=== PATIENT | female | born 2005 | race Caucasian/White ===

== ENCOUNTER 2025-04-18 04:08 | Emergency (ER) | payer OTHER, SELFPAY ==
[2025-04-18 04:11] VITALS: BP 109/89
[2025-04-18] MEDS: ZOFRAN 4 MG IV (04:34)
[2025-04-18 04:53] LABS: HCG, Serum Qualitative Screen Negative
[2025-04-18 04:56] LABS: ALT (SGPT) < 10 U/L (0-35); AST (SGOT) 16 U/L (14-36); Albumin 4.6 g/dl (3.5-5.0); Alkaline Phosphatase 61 U/L (38-126); Blood Urea Nitrogen 7 mg/dl (7-17); Calcium 9.5 mg/dl (8.4-10.2); Carbon Dioxide 25 mmol/L (22-30); Chloride 104 mmol/L (98-107); Glucose 125 mg/dl (70-99); Potassium 3.7 mmol/L (3.5-5.1); Sodium 136 mmol/L (135-145); Total Protein 7.9 g/dl (6.3-8.2); eGFR > 60.00
--- NOTE | 2025-04-18 05:07 | ED.GENMED ---
History of Present Illness
General
Chief Complaint: Flank Pain
Source: patient
Exam Limitations: none
Time Seen by Provider: 04/18/25 04:45
Nursing documentation reviewed up to this point in time: agreed with
History of Present Illness
History of Present Illness:
Note:
CHIEF COMPLAINT(S)
Left-sided back pain.
HISTORY OF PRESENT ILLNESS
The patient is a 19-year-old female no past medical history presenting with sudden onset left-sided back pain. The pain began a few days ago, waking her at around 3 a.m., and was described as intermittent, lasting one to two hours followed by a
30-minute pain-free period. She reports that the pain, predominantly located in the back, radiates down into the lower abdomen. There are no associated urinary symptoms such as dysuria or frequent urination, and she denies any fever or symptoms
suggestive of a urinary tract infection. The patient denies any history of heavy lifting, recent strenuous exercise, or past episodes of similar pain. She has not noticed any change in appetite and is capable of consuming food and drinks without
difficulty. The pains first occurrence was sudden during a period of relaxation. She has not taken any pain medication at home and is declining pain management at this time. The pain does not exacerbate her discomfort when lying down or upon
palpation of the abdomen or back.
PAST SURGICAL HISTORY
Unspecified abdominal surgery.
SOCIAL HISTORY
No medications taken on a daily basis other than control pills
REVIEW OF SYSTEMS
- General: Fevers absent.
- Genitourinary: No burning sensation during urination and no symptoms suggestive of urinary tract infection.
- Respiratory: Noted difficulty breathing is not correlated with pain intensity.
PHYSICAL EXAM
General: Alert, no acute distress.
Skin: Warm, dry.
Head: Normocephalic, atraumatic.
Neck: Supple, trachea midline.
Eye, Ears, Nose, Mouth, and Throat: Oral mucosa moist.
Cardiovascular: Regular rate and rhythm, no murmurs normal peripheral perfusion, no edema.
Respiratory: No wheezes, rales, rhonchi respirations are non-labored.
Gastrointestinal: Abdomen nondistended, no tenderness upon palpation. No CVA tenderness
Back: Normal range of motion, normal alignment, not tender to touch.
Musculoskeletal: Normal range of motion, normal strength.
Neurological: Alert and oriented to person, place, time, and situation. No focal neurological deficit observed.
Psychiatric: Cooperative, appropriate mood, and affect.
PLAN
1. Obtain a CT scan to rule out possible kidney stones, kidney infection, or diverticulitis.
2. Obtain blood work to check for signs of infection.
3. Administer intravenous ketorolac for pain management as needed.
4. Monitor the patients condition and adjust the treatment plan as necessary.
DIFFERENTIAL DIAGNOSIS
The Differential Diagnosis includes, in no particular order and is not limited to:
1. Nephrolithiasis (Kidney stones)
2. Pyelonephritis
3. Diverticulitis
4. Muscular strain
5. Gastroenteritis
6. Gastritis
7. Urinary tract infection
8. Pelvic inflammatory disease
9. Sciatica
10. Obstructive uropathy
CHART REVIEW
No prior ER physician documentation to review
MDM/DISPOSITION
19-year-old female with no past medical history presents to the ER today with concerns of left-sided abdominal pain and flank pain. She has no associate fevers. No burning with urination. No urinary frequency. On control but takes no other
medications. Physical exam she is well-appearing no acute distress. She has no abdominal tenderness to palpation. No left-sided CVA tenderness. CT scan shows questionable 3 mm left distal ureteral st. No signs of UTI. Will trial outpatient
stone passage. Patient stable for discharge.
Review of Systems
Review of Systems
All Other Systems: ROS reviewed and negative except as documented in HPI and ROS
Phy Exam
Physical Exam
Physical Exam:
see hpi
Course
Orders/Labs/Results
Orders:
Orders
04/18/25 04:32
Ondansetron Injectable [Zofran] 4 mg .ROUTE .STK-MED ONE
04/18/25 04:33
Ondansetron Injectable [Zofran] 4 mg IV NOW STA
Test Result ONCE
04/18/25 04:35
Complete Blood Count/With Diff Urgent
Comprehensive Metabolic Panel Urgent
HCG, Serum Qualitative Screen Urgent
Manual Differential Urgent
Urinalysis Reflex To Culture Urgent
Date Specimen was Collected: 04/18/25
Time Specimen was Collected: 04:18
Urine Microscopic Reflex Cult Urgent
Urine Culture Urgent
ROLY Source: U
Specimen Description:
Date Specimen was Collected: 04/18/25
Time Specimen was Collected: 04:18
04/18/25 05:07
CT Abd/pelvis W Iv Cont Urgent
Comment:
Reason For Exam: LLQ flank pain/ab pain
04/18/25 06:42
Ketorolac [Toradol] 15 mg IV NOW STA
Abnormal Lab Results
04/18/25
04:35
WBC 11.1 H 10^3/uL
(4.8-10.8)
MPV 11.0 H fL
(7.4-10.4)
Glucose 125 H mg/dl
(70-99)
Ur Occult Blood Reflex 4+ A
(Negative)
Leukocyte Esterase Rfl 1+ A
(Negative)
Urine RBC >100 A /HPF
(0-2)
Urine Bacteria (Reflex) Many A
(Negative)
Urine Albumin (Reflex) 3+ A
(Neg - Trace)
04/18/25 04:35
04/18/25 04:35
Vital Signs
Initial and Last Documented VS:
Initial Vital Signs
Temp Pulse Resp BP Pulse Ox
98.6 F 85 20 109/89 98
04/18/25 04:11 04/18/25 04:11 04/18/25 04:11 04/18/25 04:11 04/18/25 04:11
Last Documented Vital Signs
Temp Pulse Resp BP Pulse Ox
98.6 F 85 20 109/89 98
04/18/25 04:11 04/18/25 04:11 04/18/25 04:11 04/18/25 04:11 04/18/25 05:07
*Pulse Oximetry
SaO2: 98
Oxygen Mode of Delivery: Room air
Patient hypoxic: no
*Critical Care Note
Total Time (30-74mins, 75-104mins- exclusive of procedures): Not Applicable
ED Attending Note
-
Portions of this chart may have been created with voice recognition software.� Occasional wrong word or��sound alike� substitutions may have occurred due to the inherent limitations of voice recognition software.
Discharge Plan
Departure
Patient Disposition: Home (Routine Discharge)
Date of Disposition: 04/18/25
Time of Disposition: 06:43
Patient with high blood pressure during this ER visit?: No
Condition: Good
Covid-19: Not Applicable
Discharge Problem:
Calculus, ureteral
Instructions: Kidney Stones (DC)
Prescriptions:
New
tamsulosin 0.4 mg capsule
0.4 mg PO DAILY Qty: 14 0RF
ondansetron 4 mg tablet,disintegrating
4 mg PO Q6H PRN (Reason: nausea and vomiting) Qty: 7 0RF
ibuprofen 600 mg tablet
600 mg PO Q8H PRN (Reason: Pain) Qty: 14 0RF
Referrals:
Jay Goodrich MD [Active, Urology] - Follow up in 5-7 days
NONE,* [Family Provider, Internal Medicine]
Activity Restrictions/Additional Instructions:
You came to the emergency department today with concerns of left-sided abdominal pain. You are found have a kidney stone that is likely explaining your symptoms. You can take Motrin Tylenol help with pain as well as Zofran to help with nausea.
You have also take Flomax once daily to potentially help with passage of the stone. If your symptoms are ongoing you will need to follow-up with urology. Immediately return to the emergency department for any signs of infection including fevers
chills or any worsening symptoms. Please also return if your symptoms are uncontrolled or you are not able to tolerate by mouth.
Interventions
Interventions:
*Risk Screen - Suicide Last Done: 04/18/25 04:11
*General Assessment Last Done: 04/18/25 04:14
*Neglect/Abuse Screening Last Done: 04/18/25 04:14
*ED- Fall Risk Assessment Last Done: 04/18/25 04:24
*ED COVID-19 Vaccine History Last Done: 04/18/25 04:14
*ED Influenza Vaccine History Last Done: 04/18/25 04:14
*Nursing Disposition Last Done: 04/18/25 07:06
ZA-Sotvlo-Dxvrschgog Assessment Last Done: 04/18/25 04:14
ED-Female Genitourinary Assessment Last Done: 04/18/25 04:14
Discharge Date and Time
Print Language: IRISH
[2025-04-18 05:11] LABS: Urine Character Slightly Cloudy (Clear)
[2025-04-18 05:15] LABS: Hematocrit 42.1 % (37.0-47.0); Hemoglobin 13.9 g/dL (12.0-16.0); Mean Corp Hgb Conc. 33.0 g/dL (33.0-37.0); Mean Corpuscular Volume 87.0 fL (81.0-99.0); Platelet Count 249 10^3/uL (130-400); Red Cell Dist. Width 12.4 % (11.5-14.5)
[2025-04-18 05:42] LABS: Urine Red Blood Cell >100 /HPF (0-2); Urine Squamous Cell 0-2 /LPF (Few)
[2025-04-18 06:47] LABS: Absolute Neutrophils -Man Diff 4.9 10^3/uL (1.4-6.5)
[2025-04-18] MEDS: TORADOL 15 MG IV (06:48)
[2025-04-18 07:11] LABS: Normal RBC Morphology Yes; Platelets Checked Yes; Total Cells Counted 100
== END 2025-04-18 07:10 | disposition home or self-care (01) ==
LOC: EMR 04:08
PROVIDERS: EMERGENCY PHYSICIAN Student in an Organized Health Care Education/Training Program
DX: N20.1 Calculus of ureter (principal)
CPT/HCPCS: 99284; 96374; 96375; 74177; 80053; 81003; 81015; 84703; 85025; 87086; Q9967

== ENCOUNTER 2025-04-20 15:43 | Emergency (ER) | payer OTHER, SELFPAY ==
[2025-04-20 15:49] VITALS: BP 127/83
[2025-04-20 16:15] LABS: Hematocrit 41.3 % (37.0-47.0); Hemoglobin 13.8 g/dL (12.0-16.0); Mean Corp Hgb Conc. 33.4 g/dL (33.0-37.0); Mean Corpuscular Volume 86.4 fL (81.0-99.0); Nucleated Red Blood Cells % 0 %; Platelet Count 228 10^3/uL (130-400); Red Cell Dist. Width 12.2 % (11.5-14.5)
[2025-04-20 16:34] LABS: Urine Character Slightly Cloudy (Clear)
[2025-04-20 16:41] LABS: ALT (SGPT) < 10 U/L (0-35); AST (SGOT) 18 U/L (14-36); Albumin 4.7 g/dl (3.5-5.0); Alkaline Phosphatase 66 U/L (38-126); Blood Urea Nitrogen 9 mg/dl (7-17); Calcium 9.8 mg/dl (8.4-10.2); Carbon Dioxide 23 mmol/L (22-30); Chloride 104 mmol/L (98-107); Glucose 107 mg/dl (70-99); Potassium 4.3 mmol/L (3.5-5.1); Sodium 137 mmol/L (135-145); Total Protein 7.9 g/dl (6.3-8.2); eGFR > 60.00
[2025-04-20 16:49] LABS: Urine Squamous Cell >30 /LPF (Few)
--- NOTE | 2025-04-20 20:50 | ED.GENMED ---
History of Present Illness
General
Chief Complaint: Flank Pain
Source: patient
Exam Limitations: none
Time Seen by Provider: 04/20/25 20:37
Nursing documentation reviewed up to this point in time: agreed with
History of Present Illness
History of Present Illness:
Note:
CHIEF COMPLAINT(S)
Left-sided abdominal pain.
HISTORY OF PRESENT ILLNESS
The patient is a 19-year-old female presenting with left-sided abdominal pain that began on Wednesday. It was noted to worsen by Wednesday, prompting her visit to the emergency department where a computed tomography (CT) scan revealed a kidney stone on
the left side. She reports having been discharged with tamsulosin to aid in stone passage. The patient does not have any urinary tract infection and denies experiencing fever or hematuria. She reports severe nausea, stating, 'I cant keep anything in
my body,' although she denies feeling lightheaded. A bowel movement was successfully passed this morning. Non-steroidal anti-inflammatory drugs (NSAIDs) were suggested for pain management, but it is unclear when she last took them. Current symptoms
include 'a little bit' of nausea, for which she will receive intravenous ondansetron. An x-ray is planned to assess the stones current position.
MEDICATIONS
Tamsulosin.
REVIEW OF SYSTEMS
- Gastrointestinal: Bowel movement present this morning, unable to keep food down, nausea reported.
- Genitourinary: No hematuria, no urinary tract infection.
- Neurological: No dizziness.
- Constitutional: Intermittent nausea, afebrile.
PHYSICAL EXAM
General: Alert, mild distress from discomfort.
Skin: Warm, dry.
Head: Normocephalic, atraumatic.
Neck: Supple, trachea midline.
Eye Ears, nose, mouth and throat: Oral mucosa moist.
Cardiovascular: Normal peripheral perfusion, No edema.
Respiratory: Respirations are non-labored.
Gastrointestinal: Abdomen nondistended
Back: Normal range of motion, Normal alignment.
Musculoskeletal: Normal range of motion, normal strength.
Neurological: Alert and oriented to person, place, time, and situation, No focal neurological deficit observed.
Psychiatric: Cooperative, appropriate mood & affect.
PLAN
- Administer intravenous Toradol for pain management.
- Administer intravenous ondansetron for nausea.
- Obtain an x-ray to assess current location of the kidney stone.
- Consider hospital admission if symptoms do not improve.
DIFFERENTIAL DIAGNOSIS
The Differential Diagnosis includes, in no particular order and is not limited to:
- Nephrolithiasis (Kidney Stones)
- Urinary Tract Infections
- Pyelonephritis
- Gastroenteritis
- Ovarian Cyst Rupture
- Appendicitis
- Ectopic
- Cholecystitis
- Pancreatitis
- Bowel Obstruction
Disposition:
SUMMARY OF ENCOUNTER
The patient, a 19-year-old female, was seen in the emergency department for left-sided abdominal pain diagnosed as a left ureteral calculus. The pain had initially worsened prompting a CT scan which revealed the kidney stone. In the emergency
department, her pain improved with the administration of intravenous Toradol (ketorolac), ondansetron, and intravenous fluids. There were no signs of a urinary tract infection (UTI).
DISPOSITION
Discharge.
ASSESSMENT
Left ureteral calculus with effective pain and nausea management in the emergency department.
EMERGENCY TREATMENTS ADMINISTERED
Intravenous Toradol (ketorolac) for pain management and intravenous ondansetron for nausea.
PLAN
The patient was advised to follow up with urology for further management of the kidney stone and to return to the emergency department if she experiences a fever or other concerning symptoms such as worsened pain or inability to tolerate oral intake.
PATIENT EDUCATION AND COUNSELING
The patient was informed about the diagnosis of a left ureteral calculus, the importance of following up with urology, and was advised to return for any fever or concerning symptoms that may indicate complications.
FOLLOW-UP INSTRUCTIONS
The patient was instructed to follow up with urology and return to the emergency department if experiencing fever or other concerning symptoms.
MEDICATION RECONCILIATION
Prescription medication of tamsulosin had been previously provided to aid in stone passage, and intravenous Toradol and ondansetron were administered in the emergency department.
MEDICAL DECISION MAKING
- Number and Complexity of Problems Addressed: Chronic conditions affecting care include nephrolithiasis. Differential diagnosis includes nephrolithiasis, urinary tract infections, pyelonephritis, gastroenteritis, ovarian cyst rupture, appendicitis,
ectopic , cholecystitis, pancreatitis, bowel obstruction.
- Data:
Category 1: Tests and documents reviewed included a CT scan showing a left ureteral calculus.
- Risk: Prescription medication was prescribed.
DIAGNOSIS
- Left ureteral calculus (ICD-10: N20.2).
Phy Exam
Physical Exam
Physical Exam:
.
Course
Orders/Labs/Results
Orders:
Orders
04/20/25 16:01
CMP [Comprehensive Metabolic Panel] Urgent
Complete Blood Count/With Diff Urgent
HCG, Urine Qualitative Screen Urgent
Date Specimen was Collected: 04/20/25
Time Specimen was Collected: 15:54
Comment: ADD ON
Urinalysis Reflex To Culture Urgent
Date Specimen was Collected: 04/20/25
Time Specimen was Collected: 15:54
Urine Microscopic Reflex Cult Urgent
04/20/25 20:45
Add On- LAB Urgent
Tests Added?: urine hcg
04/20/25 21:22
0.9% Sodium Chloride 1000 ml [Nss] 1,000 ml IV BOLUS
Ketorolac [Toradol] 15 mg IV NOW STA
Ondansetron Injectable [Zofran] 4 mg IV NOW STA
04/20/25 21:53
Abdomen Xray - 1 View [CR Abdomen - 1 View] Urgent
Comment:
Reason For Exam: left flank pain
04/20/25 23:27
Hydrocodone 5/APAP 325 [Melvin 5/325] 1 tablet PO NOW STA
Abnormal Lab Results
04/20/25
16:01
WBC 14.1 H 10^3/uL
(4.8-10.8)
MPV 10.9 H fL
(7.4-10.4)
Abs Immat Gran (auto) 0.1 H 10^3/uL
(0-0.05)
Absolute Neuts (auto) 11.5 H 10^3/uL
(1.4-6.5)
Neutrophils % 82.0 H %
(42.2-75.2)
Lymphocytes % 12.7 L %
(20.5-51.1)
Creatinine 1.1 H mg/dL
(0.6-1.0)
Glucose 107 H mg/dl
(70-99)
Urine Ketones 3+ A
(Negative)
Ur Occult Blood Reflex 4+ A
(Negative)
Urine RBC 7-10 A /HPF
(0-2)
Urine Bacteria (Reflex) Few A
(Negative)
Urine Albumin (Reflex) 2+ A
(Neg - Trace)
04/20/25 16:01
04/20/25 16:01
Vital Signs
Initial and Last Documented VS:
Initial Vital Signs
Temp Pulse Resp BP Pulse Ox
97.9 F 75 18 127/83 97
04/20/25 15:49 04/20/25 15:49 04/20/25 15:49 04/20/25 15:49 04/20/25 15:49
Last Documented Vital Signs
Temp Pulse Resp BP Pulse Ox
97.9 F 75 18 116/76 98
04/20/25 15:49 04/20/25 15:49 04/20/25 15:49 04/20/25 23:00 04/20/25 23:00
*Pulse Oximetry
SaO2: 97
Oxygen Mode of Delivery: Room air
Patient hypoxic: no
*Critical Care Note
Total Time (30-74mins, 75-104mins- exclusive of procedures): Not Applicable
ED Attending Note
-
Portions of this chart may have been created with voice recognition software.� Occasional wrong word or��sound alike� substitutions may have occurred due to the inherent limitations of voice recognition software.
Discharge Plan
Departure
Patient Disposition: Home (Routine Discharge)
Date of Disposition: 04/20/25
Time of Disposition: 23:28
Patient with high blood pressure during this ER visit?: Yes
Condition: Good
Discharge Problem:
Calculus of distal left ureter
Instructions: Kidney stones in adults, How to Strain Your Urine, BLOOD PRESSURE
Prescriptions:
New
hydrocodone-acetaminophen 5-325 mg tablet
1 tab PO Q6H PRN (Reason: Pain) Qty: 10 0RF
No Action
tamsulosin 0.4 mg capsule
0.4 mg PO DAILY Qty: 14 0RF
ondansetron 4 mg tablet,disintegrating
4 mg PO Q6H PRN (Reason: nausea and vomiting) Qty: 7 0RF
ibuprofen 600 mg tablet
600 mg PO Q8H PRN (Reason: Pain) Qty: 14 0RF
Referrals:
NONE,* [Family Provider, Internal Medicine]
Kaylie Demarco MD [Active, Urology] - Call in 1-3 days for appt
Interventions
Interventions:
*Risk Screen - Suicide Last Done: 04/20/25 15:44
*General Assessment Last Done: 04/20/25 21:02
*Neglect/Abuse Screening Last Done: 04/20/25 15:49
*ED- Fall Risk Assessment Last Done: 04/20/25 21:02
*ED COVID-19 Vaccine History Last Done: 04/20/25 21:02
*ED Influenza Vaccine History Last Done: 04/20/25 21:02
*Nursing Disposition Last Done: 04/20/25 23:43
WU-Pazasm-Qfrlzoanrt Assessment Last Done: 04/20/25 21:02
ED-Female Genitourinary Assessment Last Done: 04/20/25 21:02
Discharge Date and Time
Discharge Date/Time: 04/20/25 23:44
Print Language: MONGOLIAN
[2025-04-20 20:58] LABS: HCG, Urine Qualitative Screen Negative
[2025-04-20 21:01] VITALS: BP 140/77; BMI 25.6
[2025-04-20] MEDS: NSS 1000 IV (21:25)
[2025-04-20] MEDS: ZOFRAN 4 MG IV (21:26)
[2025-04-20] MEDS: TORADOL 15 MG IV (21:28)
[2025-04-20 22:52] VITALS: BP 120/75
[2025-04-20 23:00] VITALS: BP 116/76
[2025-04-20] MEDS: NORCO 5/325 1 TABLET PO (23:35)
== END 2025-04-20 23:44 | disposition home or self-care (01) ==
LOC: EMR 15:43
PROVIDERS: Student in an Organized Health Care Education/Training Program; EMERGENCY PHYSICIAN Emergency Medicine
DX: N20.2 Calculus of kidney with calculus of ureter (principal)
CPT/HCPCS: 99283; 96374; 96375; 96361; 74018; 80053; 81003; 81015; 81025; 85025